=== PATIENT | female | born 1985 | race Hispanic/Latino ===

== ENCOUNTER 2020-05-23 15:40 | Inpatient (IN) | payer OTHER ==
[2020-05-23] MEDS ORDERED: LACTATED RINGERS 1,000 ML ONE (16:11)
[2020-05-23] MEDS ORDERED: TERBUTALINE 1 MG/1 ML INJ SUB-Q PRN (16:14)
[2020-05-23] MEDS ORDERED: MINERAL OIL 30 ML ORAL LIQD PO PRN (16:14)
[2020-05-23] MEDS ORDERED: fentaNYL 100 MCG/2 ML INJ IV PRN (16:14)
[2020-05-23] MEDS ORDERED: LIDOCAINE (2%) 20 MG/1 ML VIAL 20 ML MDV INFILTRATI ONE (16:14)
[2020-05-23] MEDS ORDERED: ONDANSETRON 4 MG/2 ML INJ IV PRN (16:14)
[2020-05-23] MEDS ORDERED: ePHEDrine SULFATE 50 MG/1 ML INJ IV PRN ×2 (16:14→17:20)
[2020-05-23] MEDS ORDERED: LACTATED RINGERS 1,000 ML IV SCH (16:15)
[2020-05-23] MEDS ORDERED: CARBOPROST TROMETHAMINE 250 MCG/1 ML INJ IM PRN (16:16)
[2020-05-23] MEDS ORDERED: OXYTOCIN 10 UNIT/1 ML INJ IM PRN (16:16)
[2020-05-23] MEDS ORDERED: miSOPROStol 200 MCG TAB PR PRN (16:16)
[2020-05-23] MEDS ORDERED: METHYLERGONOVINE MALEATE 0.2 MG/ML VIAL IM PRN (16:16)
--- NOTE | 2020-05-23 16:23 | History and Physical Report ---
History of Present Illness Date of examination: 05/23/20 Date of admission: 05/23/20 15:40 Chief complaint: SROM clear 1130 this morning History of present illness: EDC Calculations LMP: 05/29/2020 Past History : 5 Term Births: 2 Premature Births: 0 Living Children: 2 Para: 2 Mult. Births: 0 Prev : 0 Prev. attempt? 0 Aborta: 2 Elect. Ab: 2 Spont. Ab: 0 Ectopics: 0 # 1 Delivery date: 2008 Delivery type: EAB Comments: vaccum # 2 Delivery date: 2013 Weeks Gestation: 35 Delivery type: Infant Sex: Female weight: 6-7 Comments: PROM # 3 Delivery date: 2014 Delivery type: EAB Comments: vaccum # 4 Delivery date: 2018 Weeks Gestation: 37 Delivery type: Infant Sex: Male weight: 7-6 Risk Factors: Smoked Tobacco Use: Former smoker Cigarettes: Yes Smokeless Tobacco Use: Never Passive smoke exposure: no Drug use: no HIV high-risk behavior: no Caffeine use: 2 drinks per day Alcohol use: yes Comments: occ prior to preg. 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 Quit 2 yrs ago Infection History Hx of STD: none HIV Risk Eval: no Hepatitis B Risk Eval: low risk Personal hx. of genital herpes: no Rash, Viral, or Febrile illness since last LMP? no Varicella/Chicken Pox Status: Previous Disease TB Risk: no Infection History Comments: trich+ Genetic History Congenital Heart Defect: Mom: no Dad: no Bryan Disease: Mom: no Dad: no Thalassemia Mom: no Dad: no Neural Tube Defect Mom: no Dad: no Down's Syndrome Mom: no Dad: no Piero-Sachs Mom: no Dad: no Sickle Cell Disease/Trait Mom: no Dad: no Hemophilia Mom: no Dad: no Muscular Dystrophy Mom: no Dad: no Cystic Fibrosis Mom: no Dad: no Suhail Chorea Mom: no Dad: no Mental Retardation Mom: no Dad: no Fragile X Mom: no Dad: no Other Genetic/Chromosomal Disorder Mom: no Dad: no Child w/other defect Mom: no Dad: no Enviromental Exposures Enviromental Exposures Reviewed Xray Exposure: no Medication, drug, or alcohol use since LMP: no Chemical/Other Exposure: no Exposure to Cat Liter: no Hx of Parvovirus (Fifth Disease): no Occupational Exposure to Children: none 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 Active Medications (reviewed today): None Current Allergies (reviewed today): No known allergies Past History Past Medical History: other (see HPI) Past Surgical History: other (see HPI) 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) Family/Genetic History: other (see HPI) Social history: no significant social history - Obstetrical History Expected Date of Delivery: 05/29/20 Actual Gestation: 39 Week(s) 1 Day(s) : 5 Para: 2 Hx # Term Pregnancies: 2 Number of Pregnancies: 0 Spontaneous Abortions: 0 Induced : 2 Number of Living Children: 2 Medications and Allergies Active Meds: Active Medications Carboprost Tromethamine (Hemabate) 250 mcg IM ONCE PRN PRN Reason: Uterine Bleeding Ephedrine Sulfate (Ephedrine Sulfate) 10 mg IV Q2M PRN PRN Reason: Hypotension Fentanyl (Sublimaze) 100 mcg IV Q2H PRN PRN Reason: Pain,Severe (7-10) LABOR PAIN Oxytocin/Sodium Chloride (Pitocin/Ns 30 Unit/500ml) 30 units in 500 mls @ 2 mls/hr IV TITR ALEJANDRA; Protocol Lactated Ringer's (Lactated Ringers) 1,000 mls @ 125 mls/hr IV DIRECT ALEJANDRA Oxytocin/Sodium Chloride (Pitocin/Ns 30 Unit/500ml) 30 units in 500 mls @ 40 mls/hr IV TITR ALEJANDRA; Protocol Lidocaine (Xylocaine 2%) 20 ml INFILTRATI ONCE ONE Stop: 05/23/20 16:15 Methylergonovine Maleate (Methergine) 0.2 mg IM ONCE PRN PRN Reason: Uterine Bleeding Mineral Oil (Mineral Oil) 30 ml PO QHS PRN PRN Reason: Constipation Misoprostol (Cytotec) 800 mcg NV ONCE PRN PRN Reason: Uterine Bleeding Ondansetron HCl (Zofran) 4 mg IV Q8H PRN PRN Reason: Nausea And Vomiting Oxytocin (Pitocin) 10 unit IM ONCE PRN PRN Reason: Uterine Bleeding Terbutaline Sulfate (Brethine) 0.25 mg SUB-Q ONCE PRN PRN Reason: Hyperstimulation/Hypertonicity Review of Systems All systems: negative - Vital Signs Vital signs: Vital Signs Pulse BP 82 121/71 05/23/20 16:13 05/23/20 16:13 Temp Pulse Resp BP Pulse Ox 82 121/71 05/23/20 16:13 05/23/20 16:13 - Physical Exam Breasts: Positive: normal Cardiovascular: Regular rate Lungs: Positive: Normal air movement Abdomen: Positive: normal appearance, soft Genitourinary (Female): Positive: normal external genitalia, normal perenium Vulva: both: normal Vagina: Positive: normal moisture (clear amniotic fluid) Uterus: Positive: normal size, normal contour Anus/Rectum: Positive: normal perianal skin Extremities: Positive: normal Deep Tendon Reflex Grade: Normal +2 - Obstetrical FHR: auscultation normal, category 1 Uterine Contraction Monitor Mode: External Cervical Dilatation: 4 Cervical Effacement Percentage: 100 station: -2 Uterine Contraction Frequency (min): 2-3 Uterine Contraction Duration: 60 Uterine Contraction Pattern: Regular Uterine Tone Measurement Phase: Contraction Uterine Contraction Intensity: Moderate Results All other labs normal. Assessment and Plan 34y/o admitted in labor, SROM @ 1130 this morning. GBS Neg. Admission orders in EMR. Anticipate . - Patient Problems (1) SROM (spontaneous rupture of membranes) Onset Date: ~05/23/20 Current Visit: Yes Status: Acute (2) 39 weeks gestation of Current Visit: Yes Status: Acute
[2020-05-23] MEDS ORDERED: OXYTOCIN DRIP 30 UNITS/500 ML BAG IV SCH ×2 (17:00)
[2020-05-23 17:14] LABS: Hemoglobin 11.2 gm/dl (10.1-14.3); Mean Corpuscular HGB Conc 33 % (30-34); Mean Corpuscular Volume 75 fl (79-97); Platelet Count 358 K/mm3 (140-440); Red Blood Count 4.56 M/mm3 (3.65-5.03); Red Cell Distribution Width 15.2 % (13.2-15.2)
[2020-05-23] MEDS ORDERED: NALOXONE 2 MG/2 ML INJ IV PRN (17:20)
--- NOTE | 2020-05-23 17:21 | Anesthesia Consultation ---
Anesthesia Consult and Med Hx Date of service: 05/23/20 - Airway Anesthetic Teeth Evaluation: Good ROM Head & Neck: Adequate Mental/Hyoid Distance: Adequate Mallampati Class: Class II Intubation Access Assessment: Probably Good - Pulmonary Exam CTA: Yes - Cardiac Exam Cardiac Exam: RRR - Pre-Operative Health Status ASA Pre-Surgery Classification: ASA2 Proposed Anesthetic Plan: Epidural - Pulmonary Hx Asthma: No COPD: No Hx Pneumonia: No - Cardiovascular System Hx Hypertension: No - Central Nervous System Hx Seizures: No Hx Psychiatric Problems: No - Endocrine Hx Renal Disease: No Hx End Stage Renal Disease: No Hx Hypothyroidism: No Hx Hyperthyroidism: No - Hematic Hx Anemia: No Hx Sickle Cell Disease: No - Other Systems Hx Alcohol Use: No
[2020-05-23] MEDS ORDERED: fentaNYL-BUPIV 2 MCG/ML-0.125% 200 MCG/100 ML BAG EPIDURAL SCH (18:00)
--- NOTE | 2020-05-23 19:16 | Procedure Note ---
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: QUENTIN TOPETE ([facility]) Estimated blood loss: 200cc - Vaginal Delivery presentation: vertex Delivery position: OA Intrapartum events: other(please specify) (prolonged deceleration noted immediately prior to delivery) Delivery induction: none Delivery monitor: external uterine, internal FHT Route of delivery: Delivery placenta: spontaneous Delivery cord: 3 umbilical vessels Episiotomy: none Delivery laceration: none Anesthesia: epidural Delivery comments: Viable female born over intact perineum s/p prolonged decel immediately prior to delivery, placed skin to skin with mother, 3 vessel cord clamped and cut. given to OMER RN Crying and vigorous. Placenta delivered spontaneously, complete and intact. EBL 200mL. No lacerations to repair. Cord Blood Sent. All counts correct. Mother and baby LDR stable. - A at 1 minute: 8 at 5 minutes: 9 Gender: Female (7lbs 6oz)
--- NOTE | 2020-05-23 21:03 | Progress Note ---
Labor Epidural - Labor Epidural Start Time: 17:40 Stop Time: 17:45 Performed by:: PHILLIP MORENO Procedure: Patient is requesting epidural for labor pain. H&P, and labs reviewed. Procedure explained, questions answered, consent obtained. Patient in sitting position with blood pressure cuff and pulse ox on and working. Timeout performed immediately before start of procedure. Sterile betadine prep/drape. 3 mL 1% lidocaine skin wheal at L[3]-L[4]. 18-gauge Trusted Opinion epidural needle advanced to [id number] with saline at [7] cm. Epidural dexmedetomidine [30] mcg administered. Epidural catheter advanced to [12] cm, negative aspiration for blood and csf, negative test dose 3 ml 1.5% lidocaine with epinephrine. Sterile steri-strips and tegaderm applied, followed by tape reinforcement. Patient tolerated procedure well. Edenilson SRNA
[2020-05-23] MEDS ORDERED: IBUPROFEN 600 MG TAB PO PRN (21:51)
[2020-05-23] MEDS ORDERED: BENZOCAINE/MENTHOL 20/0.5% TOP SPRAY 56 GM TP PRN (23:52)
[2020-05-23] MEDS ORDERED: MAGNESIUM HYDROXIDE (MOM) ORAL LIQD UDC PO PRN (23:52)
[2020-05-23] MEDS ORDERED: WITCH HAZEL/ GLYCERIN PAD TP PRN (23:52)
[2020-05-23] MEDS ORDERED: PROMETHAZINE 25 MG TAB PO PRN (23:52)
[2020-05-23] MEDS ORDERED: LANOLIN/ZINC/DIMETHICONE (LANSINOH) 7 GM TP PRN (23:52)
[2020-05-23] MEDS ORDERED: diphenhydrAMINE 25 MG CAP PO PRN (23:52)
[2020-05-24] MEDS: ACETAMINOPHEN 500 MG TAB PO PRN ×2 (00:20→10:05)
[2020-05-24] MEDS: IBUPROFEN 800 MG TAB PO SCH ×3 (05:37→21:21)
[2020-05-24] MEDS ORDERED: DIPHtheria,PERTUSSIS(ACELL),TETANUS VACCINE/PF 0.5 ML VIAL IM ONE (06:00)
--- NOTE | 2020-05-24 08:22 | Progress Note ---
Assessment and Plan Pt laying in bed with c/o painful ABD cramping. Recently administered pain medication this morning. No other visible s/s of distress seen. VSSAF. Post- delivery H/H scheduled to be drawn this morning. Ambulating and voiding without difficulty. Fundus firm at umbilicus. Slightly deviated d/t full bladder. Light to moderate vaginal bleeding. Breast-pumping successfully. Desires BTL for permanent sterilization. P: Continue PP pathway. Will consider D/C home at 24 hrs PP if pt remains stable. - Patient Problems (1) (normal spontaneous vaginal delivery) Current Visit: Yes Status: Acute Subjective - Subjective Date of service: 05/24/20 Principal diagnosis: Day #1 s/p Patient reports: appetite normal, voiding normally, pain well controlled (with medication), ambulating normally [place]: doing well Objective - Vital Signs Latest vital signs: Vital Signs Temp Pulse Resp BP BP BP Pulse Ox 05/24/20 05:37 18 05/24/20 00:20 18 05/23/20 23:08 98.0 F 88 20 115/55 97 05/23/20 22:58 18 05/23/20 22:33 95 H 98 05/23/20 22:30 92 H 118/75 05/23/20 22:28 92 H 99 05/23/20 22:23 85 99 05/23/20 22:18 85 98 05/23/20 22:15 81 104/59 05/23/20 22:13 88 99 05/23/20 22:08 96 H 98 05/23/20 22:03 92 H 98 05/23/20 22:00 78 18 110/62 05/23/20 21:45 87 18 107/59 107/59 99 05/23/20 21:30 78 113/57 05/23/20 21:15 81 121/59 05/23/20 21:11 72 127/60 99 05/23/20 21:10 57 L 90 05/23/20 20:55 76 95 05/23/20 20:54 70 90 05/23/20 20:50 73 96 05/23/20 20:48 78 91 05/23/20 20:45 82 109/63 98 05/23/20 20:40 82 96 05/23/20 20:38 74 90 12/02/20 20:35 77 97 05/23/20 20:30 77 108/63 98 05/23/20 20:25 75 97 05/23/20 20:20 70 97 05/23/20 20:18 72 105/64 05/23/20 20:17 73 18 105/64 97 05/23/20 20:15 81 100/58 92 05/23/20 20:10 72 97 05/23/20 20:05 77 96 05/23/20 20:00 98.7 F 87 18 105/59 105/59 99 05/23/20 19:55 82 97 05/23/20 19:50 79 98 05/23/20 19:45 98.8 F 78 18 107/55 107/55 98 05/23/20 19:40 85 98 05/23/20 19:35 86 98 05/23/20 19:30 85 116/55 96 05/23/20 19:25 87 91 05/23/20 19:20 83 97 05/23/20 19:15 93 H 107/63 96 05/23/20 19:06 100 H 96 05/23/20 19:01 97 H 96 05/23/20 18:56 86 97 05/23/20 18:51 136 H 97 05/23/20 18:48 65 89 05/23/20 18:46 99 H 100 05/23/20 18:42 93 H 83 L 05/23/20 18:41 110 H 96 05/23/20 18:36 89 98 05/23/20 18:31 87 98 05/23/20 18:29 80 115/56 05/23/20 18:27 102 H 90 05/23/20 18:26 74 99 05/23/20 18:21 106 H 83 L 05/23/20 18:16 90 97 05/23/20 18:15 97 H 87 05/23/20 18:11 86 98 05/23/20 18:06 85 98 05/23/20 18:03 91 H 92 05/23/20 18:01 91 H 96 05/23/20 17:57 86 112/57 05/23/20 17:56 114 H 99 05/23/20 17:54 80 114/62 05/23/20 17:51 124 H 100 05/23/20 17:47 71 121/68 05/23/20 17:46 117 H 100 05/23/20 17:44 80 120/64 05/23/20 17:41 90 99 05/23/20 17:36 109 H 100 05/23/20 17:31 89 100 05/23/20 17:26 74 93 05/23/20 17:21 94 H 97 05/23/20 17:17 74 89 05/23/20 17:16 93 H 99 05/23/20 17:14 78 108/70 05/23/20 17:11 100 H 99 05/23/20 17:06 99 H 99 05/23/20 17:03 69 94 05/23/20 17:01 85 80 L 05/23/20 16:56 73 91 05/23/20 16:51 68 95 05/23/20 16:49 98.3 F 72 18 119/67 94 05/23/20 16:44 72 119/67 05/23/20 16:35 22 05/23/20 16:13 82 121/71 Intake and Output 05/23/20 05/24/20 05/24/20 22:59 06:59 14:59 Intake Total 240 Output Total 700 700 Balance -460 -700 Intake: Oral 240 Output: Urine 700 700 Indwelling Catheter 200 Void 500 700 Other: Total, Intake Amount 240 Total, Output Amount 500 700 Weight 182 lb Estimated Blood Loss 200 - Exam Breasts: Present: deferred Cardiovascular: Present: Regular rate Lungs: Present: Normal air movement Abdomen: Present: normal appearance, soft Uterus: Present: normal, firm, fundal height at umbilicus (Uterus slightly deviated d/t full bladder) Extremities: Present: normal Deep Tendon Reflex Grade: Normal +2 - Labs Labs: Abnormal lab results 05/23/20 Range/Units 16:40 WBC 11.9 H (4.5-11.0) K/mm3 MCV 75 L (79-97) fl MCH 25 L (28-32) pg
[2020-05-24] MEDS: PRENATAL VIT27-FE FUMARATE-FOLIC ACID VIT TAB PO SCH (10:07)
[2020-05-24] MEDS: DOCUSATE SODIUM 100 MG CAP PO SCH ×2 (10:07→21:21)
[2020-05-24 14:35] LABS: Hematocrit 30.6 % (30.3-42.9); Hemoglobin 10.1 gm/dl (10.1-14.3)
--- NOTE | 2020-05-24 15:56 | Post Anesthesia Evaluation ---
- Post Anesthesia Evaluation Patient Participated: Yes Airway Patent: Yes Stable Respiratory Function: Yes Nausea/Vomiting: No Temp > 96.8F: Yes Pain Manageable: Yes Adequeate Hydration: Yes Anesthesia Complications: No Block Receding Appropriately: Yes
--- NOTE | 2020-05-24 17:06 | Discharge Summary ---
Providers - Providers Date of Admission: 05/23/20 15:40 Date of discharge: 05/24/20 Attending physician: SIRENA HYLTON Primary care physician: SIRENA HYLTON Hospitalization Reason for admission: active labor, IUP at term Delivery: Episiotomy: none Laceration: none Other procedures: none complications: none Discharge diagnosis: IUP at term delivered [place] baby: female Pertinent studies: Post-delivery H/H 04/20. Hospital course: 34 y.o. female, , SROM at 39 weeks. Uncomplicated and PP course. P: May be discharged home at 24 hrs PP if remains stable. F/U in 4 weeks for PPV. Condition at discharge: Good Disposition: DC-01 TO HOME OR SELFCARE - Discharge Diagnoses (1) (normal spontaneous vaginal delivery) Status: Acute Comment: VSSAF remains since initial assessment this morning. Desires BTL for sterilization. P: May be d/c home at 24hrs post-delivery if remains stable. F/U in 4 weeks for PPV. Plan - Discharge Medications Prescriptions: Ibuprofen [Motrin] 800 mg PO Q8HR PRN #30 tablet PRN Reason: Pain, Moderate (4-6) - Provider Discharge Summary Activity: no sex for 6 weeks, no heavy lifting 4 weeks, no strenuous exercise Diet: routine Additional instructions: [] Smoking cessation referral if applicable(refer to patient education folder for contact #) [] Refer to [facility] Booklet Call your doctor immediately for: * Fever > 100.5 * Heavy vaginal bleeding ( >1 pad per hour) * Severe persistent headache * Shortness of breath * Reddened, hot, painful area to leg or breast * Drainage or odor from incision. * Keep incision clean and dry at all times and follow doctor's instructions regarding bathing/showering - Follow up plan Follow up: SIRENA HYLTON MD [Primary Care Provider] - 7 Days (Congratulations! Please contact our office at [phone] to schedule your 4 week visit. Feel free to contact us with any questions or concerns. )
[2020-05-25] MEDS: IBUPROFEN 800 MG TAB PO SCH ×3 (05:56→17:47)
[2020-05-25] MEDS: ACETAMINOPHEN 500 MG TAB PO PRN (09:27)
[2020-05-25] MEDS: DOCUSATE SODIUM 100 MG CAP PO SCH (09:27)
[2020-05-25] MEDS: PRENATAL VIT27-FE FUMARATE-FOLIC ACID VIT TAB PO SCH (09:27)
[2020-05-25 18:00] VITALS: BP 121/77
== END 2020-05-25 21:09 | disposition home or self-care (01) | DRG 775 ==
LOC: LD 15:40 → OB 23:25
PROVIDERS: ADMIT Obstetrics & Gynecology; ATTEND Obstetrics & Gynecology
PROC: 10E0XZZ Delivery of Products of Conception, External Approach (ICD-10-PCS; principal; 2020-05-23)
PROC: 3E0R3BZ Introduction of Anesthetic Agent into Spinal Canal, Percutaneous Approach (ICD-10-PCS; 2020-05-23)
PROC: 00HU33Z Insertion of Infusion Device into Spinal Canal, Percutaneous Approach (ICD-10-PCS; 2020-05-23)
PROC: 3E0234Z Introduction of Serum, Toxoid and Vaccine into Muscle, Percutaneous Approach (ICD-10-PCS; 2020-05-24)
DX: O80 Encounter for full-term uncomplicated delivery (principal); Z37.0 Single live birth; Z3A.39 39 weeks gestation of pregnancy
CPT/HCPCS: 36415; 85014; 85018; 85027; 86850; 86900; 86901; G0378; J3010; J7120